=== PATIENT | male | born 1990 ===

== ENCOUNTER 2017-02-14 20:25 | Emergency (ER) | payer OTHER ==
[2017-02-14 20:30] VITALS: RESP 20; O2SAT 100
[2017-02-14] MEDS ORDERED: Iohexol 240 (50 ml) PO STA (20:39)
[2017-02-14] MEDS ORDERED: Sodium Chloride 0.9% 1,000 ML IV ONE (20:39)
--- NOTE | 2017-02-14 20:39 | C.PDOC ---
History Of Present Illness Patient is a 26 y/o male that presents to the emergency department for evaluation of RLQ abdominal pain for the past 2 days. Otherwise, denies any fever, chills, n/v/d, urinary symptoms, back pain, or any other associated symptoms at this time. Time Seen by Provider: 02/14/17 20:38 Chief Complaint (Nursing): Abdominal Pain History Per: Patient History/Exam Limitations: no limitations Onset/Duration Of Symptoms: Days (2) Current Symptoms Are (Timing): Still Present Context: Other Severity: Moderate Pain Scale Rating Of: 4 Location Of Pain/Discomfort: RLQ Radiation Of Pain To:: None Quality Of Discomfort: "Pain" Associated Symptoms: denies: Fever, Chills, Nausea, Vomiting, Diarrhea, Loss Of Appetite, Back Pain, Chest Pain, Constipation, Urinary Symptoms Exacerbating Factors: None Alleviating Factors: None Last Bowel Movement: Today Recent travel outside of the [place]: No Additional History Per: Patient Past Medical History Reviewed: Historical Data, Nursing Documentation, Vital Signs Vital Signs: Last Vital Signs Temp 97.4 F L 02/14/17 20:28 Pulse 74 02/14/17 20:28 Resp 20 02/14/17 20:28 BP 147/95 H 02/14/17 20:28 Pulse Ox 100 02/14/17 22:42 Family History: States: No Known Family Hx - Social History Hx Alcohol Use: Yes Hx Substance Use: No - Immunization History Hx Tetanus Toxoid Vaccination: No Hx Influenza Vaccination: Yes Hx Pneumococcal Vaccination: No Review Of Systems Constitutional: Negative for: Fever, Chills Cardiovascular: Negative for: Chest Pain, Palpitations Respiratory: Negative for: Cough, Shortness of Breath Gastrointestinal: Positive for: Abdominal Pain. Negative for: Nausea, Vomiting , Diarrhea, Constipation Genitourinary: Negative for: Rash Musculoskeletal: Negative for: Back Pain Skin: Negative for: Rash, Lesions, Jaundice, Bruising Neurological: Negative for: Weakness Psych: Negative for: Anxiety Physical Exam - Physical Exam Appears: Non-toxic, No Acute Distress Skin: Warm, Dry Eye(s): bilateral: Normal Inspection Oral Mucosa: Moist Neck: Supple Chest: Symmetrical, No Tenderness Cardiovascular: Rhythm Regular, No Murmur Respiratory: No Rales, No Rhonchi, No Wheezing Gastrointestinal/Abdominal: Soft, Tenderness (RLQ), No Distention, No Guarding, No Rebound, Other (tympanic to percussion) Back: No CVA Tenderness Extremity: Normal ROM Extremity: Bilateral: Atraumatic, Normal Color And Temperature, Normal ROM Neurological/Psych: Oriented x3, Normal Speech, Normal Cognition Gait: Steady ED Course And Treatment - Laboratory Results Result Diagrams: 02/14/17 20:53 02/14/17 20:53 O2 Sat by Pulse Oximetry: 100 (on RA) Pulse Ox Interpretation: Normal Progress Note: Labs, abd & pelvis CT ordered and reviewed. Pt was given Iohexol , Pepcid, Zofran, and IV fluids in the ER. Reevaluation Time: 22:50 Reassessment Condition: Improved Medical Decision Making Medical Decision Making: Upon provider reevaluation patient is feeling better, is medically stable, and requires no further treatment in the ED at this time. Patient will be discharged home with Rx for miralax. Counseling was provided and all questions were answered regarding diagnosis and need for follow up with the referred clinic. There is agreement to discharge plan. Return if symptoms persist or worsen. Disposition Counseled Patient/Family Regarding: Studies Performed, Diagnosis, Need For Followup, Rx Given - Disposition Referrals: [facility] [Outside] [facility] [Outside] Disposition: HOME/ ROUTINE Disposition Time: 20:39 Condition: FAIR Prescriptions: Polyethylene Glycol 3350 [Miralax] 17 gm PO DAILY #270 ml Instructions: Abdominal Pain (ED), Gas and Bloating (ED), Constipation (DC) - Clinical Impression Clinical Impression: Abdominal pain, Constipation - Scribe Statement The provider has reviewed the documentation as recorded by the Gregory Steele Provider Attestation: All medical record entries made by the Gregory were at my direction and personally dictated by me. I have reviewed the chart and agree that the record accurately reflects my personal performance of the history, physical exam, medical decision making, and the department course for this patient. I have also personally directed, reviewed, and agree with the discharge instructions and disposition.
[2017-02-14] MEDS ORDERED: Sodium Chloride 0.9% 1,000 ML ONE (20:55)
[2017-02-14 20:56] LABS: BASO # 0.1 K/uL (0.0-0.2); BASO % 1.2 % (0.0-2.0); EOS # 0.7 K/uL (0.0-0.7); EOS % 6.8 % (0.0-4.0); HEMATOCRIT 48.4 % (35.0-51.0); LYMPH # 3.5 K/uL (1.0-4.3); LYMPH % 32.7 % (20.0-40.0); MEAN CORPUSCULAR HEMOGLOBIN 28.2 pg (27.0-31.0); MEAN PLATELET VOLUME 9.5 fL (7.2-11.7); MONO # 0.8 K/uL (0.0-0.8); MONO % 7.5 % (0.0-10.0); NRBC % 0.1 % (0.0-2.0); WHITE BLOOD COUNT 10.8 K/uL (4.8-10.8)
[2017-02-14] MEDS ORDERED: Iohexol 240 (50 ml) ONE (20:56)
[2017-02-14 21:07] LABS: URINE BILIRUBIN NEGATIVE (NEGATIVE); URINE BLOOD NEGATIVE (NEGATIVE); URINE COLOR Yellow (YELLOW); URINE GLUCOSE (UA) NORMAL (Normal); URINE KETONE NEGATIVE (NEGATIVE); URINE LEUKOCYTE ESTERASE NEG Leu/uL (Negative); URINE PROTEIN NEGATIVE (NEGATIVE); URINE UROBILINOGEN NORMAL mg/dL (0.2-1.0); WBC URINE < 1 /hpf (0-5)
[2017-02-14 21:13] LABS: CHLORIDE 99 mmol/L (98-107); POTASSIUM 4.2 mmol/L (3.6-5.2); SODIUM 137 mmol/L (132-148)
[2017-02-14 21:15] LABS: ALB/GLOB RATIO 1.4 (1.0-2.1); AST/SGOT 36 U/L (17-59); BILIRUBIN,TOTAL 0.8 mg/dL (0.2-1.3); CARBON DIOXIDE 25 mmol/L (22-30); GFR AFRICAN-AMERICAN > 60; TOTAL PROTEIN 8.2 g/dL (6.3-8.3)
[2017-02-14 21:16] LABS: ALKALINE PHOSPHATASE 89 U/L (38-126); ALT/SGPT 49 U/L (21-72); BLOOD UREA NITROGEN 11 mg/dL (9-20); CALCIUM 8.9 mg/dl (8.6-10.4); GLUCOSE,RANDOM 92 mg/dL (75-110)
[2017-02-14 21:18] LABS: INR 0.9
[2017-02-14] MEDS ORDERED: Iodixanol 320 MG/ML 100 ML BOTTLE IV ONE (22:09)
[2017-02-14 23:06] VITALS: BP 136/83; PULSE 85; TEMP 98.8
--- NOTE | 2017-02-15 10:19 | CT ---
PROCEDURE: CT abdomen and pelvis dated 02/14/2017. HISTORY: abd pain COMPARISON: None. TECHNIQUE: Contiguous axial images of the abdomen and pelvis of performed following oral and intravenous injection of approximately 100 cc Visipaque 320 contrast material. . Coronal and Sagittal reformats generated. Radiation dose: Total exam DLP = 347.8 mGy-cm. This CT exam was performed using one or more of the following dose reduction techniques: Automated exposure control, adjustment of the mA and/or kV according to patient size, and/or use of iterative reconstruction technique. FINDINGS: LOWER THORAX: Tiny hiatal hernia. LIVER: Liver is upper limits of normal measuring approximately 18.2 cm. Mild fatty hepatic infiltration. No obvious hepatic mass or collection. Portal and splenic veins are opacified. GALLBLADDER AND BILE DUCTS: The gallbladder is physiologically distended. No evidence of intraluminal gallbladder calculi. PANCREAS: Unremarkable. No mass. No ductal dilatation. SPLEEN: Spleen is of borderline/mildly enlarged measuring 13 cm in AP dimension. No obvious splenic mass collection or calcification. ADRENALS: Slightly nodular appearing left adrenal gland. KIDNEYS AND URETERS: Kidneys demonstrate symmetric nephrograms. No evidence of nephrolithiasis or hydronephrosis. BLADDER: Urinary bladder is physiologically distended. No evidence of intraluminal urinary bladder calculi. REPRODUCTIVE: Prostate and seminal vesicles unremarkable. APPENDIX: Normal-appearing appendix. BOWEL: Evaluation of the bowel is somewhat limited due to incomplete opacification. Stomach is distended with liquid contrast and air. Visualized loops of small bowel exhibit relatively normal contour and caliber. No evidence of acute mechanical small bowel obstruction with oral contrast material seen in the colon to the level of the at hepatic flexure region. Sigmoid diverticulosis is present however no radiographic evidence of acute diverticulitis so far as can be seen. Moderate amount of stool seen throughout the colon. Suggesting mild fecal retention/ constipation. C PERITONEUM: Unremarkable. No fluid collection. No free air. Small fat containing umbilical hernia. LYMPH NODES: There are small to medium-sized lymph nodes seen in the upper mesentery region ; rule out mesenteric adenitis. VASCULATURE: Unremarkable. No aortic aneurysm. BONES: No fracture or destructive lesion. Straightening of the normal lumbar lordosis possibly due to patient positioning in the gantry. OTHER FINDINGS: None. IMPRESSION: There are a few scattered colonic diverticula seen along the sigmoid colon however no radiographic evidence of acute diverticulitis. . There is a moderate amount of stool seen throughout the colon suggesting mild fecal retention/constipation There are several upper mesenteric small medium sized lymph nodes; rule out mesenteric adenitis. Borderline/mild hepatosplenomegaly. Mild fatty hepatic infiltration. Slightly nodular appearing left adrenal gland See above discussion for additional findings and details. Preliminary report provided by overnight radiology service.
== END 2017-02-14 23:06 | disposition home or self-care (01) ==
LOC: C.ER 20:25
DX: K59.00 Constipation, unspecified (principal); R10.31 Right lower quadrant pain
CPT/HCPCS: 74177; 80053; 81001; 83690; 85025; 85610; 85730; 96361; 96374; 96375; 99284; J2405; J7040; Q9966; Q9967